=== PATIENT | female | born 1960 | race Caucasian/White ===

== ENCOUNTER → 2017-02-28 | Outpatient (CLI) | payer OTHER ==
--- NOTE | 2017-02-28 15:20 | US ---
EXAMINATION TYPE: US thyroid st tissue head/neck DATE OF EXAM: 02/28/2017 3:11 PM COMPARISON: 09/06/2016 CLINICAL HISTORY: E04.1 THYROID NODULE. Follow up exam GLAND SIZE: Right Lobe: 3.7 x 1.5 x 1.2 cm Overall Parenchyma: homogenous Left Lobe: 3.5 x 1.0 x 1.0 cm Overall Parenchyma: homogeneous Isthmus Thickness: 0.2 cm NODULES RIGHT: # of nodules measured on right: 1 1. 0.5 X 0.3 x 0.5 cm hypoechoic solid nodule at the mid pole with well-defined margins. This nodul e is wider than tall and shows intranodular vascularity. Prior size: 0.4 x 0.3 x 0.3 cm LEFT: # of nodules measured on left: 0 ISTHMUS: # of nodules measured in the isthmus: 0 Bilateral neck scanned, no evidence of lymphadenopathy. IMPRESSION: Stable subcentimeter right solid thyroid nodule.
== END | disposition home or self-care (01) ==
LOC: RADUSWWP 14:56
PROVIDERS: ATTEND Family Medicine
DX: E04.1 Nontoxic single thyroid nodule (principal)
CPT/HCPCS: 76536

== ENCOUNTER → 2017-08-23 | Outpatient (CLI) | payer OTHER ==
--- NOTE | 2017-08-23 08:46 | CT ---
EXAMINATION TYPE: CT chest w con DATE OF EXAM: 08/23/2017 COMPARISON: No prior films are available. The prior report dated 09/10/2002 CT chest is reviewed. HISTORY: Abnormal CXR CT DLP: 161.2 mGycm, Automated exposure control for dose reduction was used. CONTRAST: Performed injected with 100 mL of Omnipaque 300. TECHNIQUE: Axial images were obtained at 5 mm thick sections. Reconstructed images are reviewed on [employer] computer in the coronal plane. FINDINGS: Portion of the thyroid visualized is normal. There are multiple scattered areas of pneumonitis throughout the lung arita. A more focal density of pneumonitis in the right anterior upper lobe measuring 0.8 cm. Series 4 image 16. These multiple are as of pneumonitis are nonspecific. Findings could be compatible with infectious etiologies in the pro per clinical setting. Metastatic disease could be considered. These areas of pneumonitis were describ ed in the previous CT chest of 09/10/2002. However progression cannot be evaluated as the films are n o longer available. The right suprahilar lymph node is enlarged measuring 1.4 cm in diameter. Some mild soft tissue dens ity is adjacent to the left infrahilar region. Enlarged lymphadenopathy within the left hilar region is not evident. The ascending aorta diameter at the level of the main pulmonary artery is 2.6 cm. Th e main pulmonary artery diameter at the bifurcation is 2.3 cm. Some coronary artery calcification is likely present. Limited CT sections are obtained through the upper abdomen. Abdomen is essentially unremarkable. IMPRESSIONS: 1. Multiple bilateral scattered areas of pneumonitis within the lung arita. Correlate with patient's clinical symptoms. Infectious etiology, metastatic disease could be considered. Consider more unusua l forms such as interstitial pneumonitis (UIP, DIP), and Pneumocystis carinii. 2. Enlarged right suprahilar lymph node.
== END | disposition home or self-care (01) ==
LOC: RADCTMAIN 07:14
PROVIDERS: ATTEND Family Medicine
DX: J18.9 Pneumonia, unspecified organism (principal); R59.0 Localized enlarged lymph nodes
CPT/HCPCS: 71260; Q9967

== ENCOUNTER → 2017-08-29 | Outpatient (CLI) | payer OTHER ==
--- NOTE | 2017-08-29 14:37 | US ---
EXAMINATION TYPE: US thyroid st tissue head/neck DATE OF EXAM: 08/29/2017 COMPARISON: 02/28/2017 CLINICAL HISTORY: 57-year-old female R93.8 Abnormal CXR,E04.1 Thyroid Nodule. TECHNIQUE: Multiple sonographic images of the thyroid gland are obtained. FINDINGS: Right Lobe: 4.1 X 1.2 X 1.3 cm Overall Parenchyma: homogenous Left Lobe: 3.7 X 0.7 X 1.1 cm Overall Parenchyma: homogeneous Isthmus Thickness: 0.1 cm NODULES RIGHT: # of nodules measured on right: 1 1. 0.4 X 0.2 x 0.3 cm hypoechoic solid nodule at the mid pole with well-defined margins. This nodu le is wider than tall and shows no intranodular vascularity. Prior size: 0.5 x 0.3 x 0.5 cm. Stability/slight decrease in size suggests a benign etiology. LEFT: # of nodules measured on left: 0 ISTHMUS: # of nodules measured in the isthmus: 0 Bilateral neck scanned, no evidence of lymphadenopathy. IMPRESSION: Tiny 4 mm nodule in the right lobe is stable to slightly decreased in size from 02/28/2017 suggesting a benign etiology.
--- NOTE | 2017-08-30 10:03 | ECHOF ---
Referral Reason:[id number] pre chemo MEASUREMENTS -------- HEIGHT: 154.9 cm WEIGHT: 54.4 kg BP: 133/74 RVIDd: 3.1 cm (< 3.3) IVSd: 0.8 cm (0.6 - 1.1) LVIDd: 3.8 cm (3.9 - 5.3) LVPWd: 0.8 cm (0.6 - 1.1) IVSs: 1.3 cm LVIDs: 2.8 cm LVPWs: 1.4 cm LA Diam: 3.0 cm (2.7 - 3.8) LAESV Index (A-L): 25.63 ml/m Ao Diam: 2.3 cm (2.0 - 3.7) AV Cusp: 1.7 cm (1.5 - 2.6) MV EXCURSION: 17.657 mm (> 18.000) MV EF SLOPE: 146 mm/s (70 - 150) EPSS: 0.4 cm MV E Franco: 0.72 m/s MV DecT: 223 ms MV A Franco: 0.59 m/s MV E/A Ratio: 1.23 RAP: 5.00 mmHg RVSP: 29.15 mmHg FINDINGS -------- Sinus rhythm. This was a technically good study. The left ventricular size is normal. Left ventricular wall thickness is normal. Overall left vent ricular systolic function is normal with, an EF between 60 - 65 %. The right ventricle is normal in size. Normal LA size by volume 22+/-6 ml/m2. The right atrium is normal in size. The aortic valve is trileaflet and appears structurally normal. The mitral valve is normal. Mild tricuspid regurgitation present. Right ventricular systolic pressure is normal at < 35 mmHg. There is no pulmonic regurgitation present. The aortic root size is normal. Normal inferior vena cava with normal inspiratory collapse consistent with estimated right atrial pre ssure of 5 mmHg. The pericardium is normal. CONCLUSIONS -------- 1. Sinus rhythm. 2. This was a technically good study. 3. The left ventricular size is normal. 4. Left ventricular wall thickness is normal. 5. Overall left ventricular systolic function is normal with, an EF between 60 - 65 %. 6. The right ventricle is normal in size. 7. Normal LA size by volume 22+/-6 ml/m2. 8. The right atrium is normal in size. 9. The aortic valve is trileaflet and appears structurally normal. 10. The mitral valve is normal. 11. Mild tricuspid regurgitation present. 12. Right ventricular systolic pressure is normal at < 35 mmHg. 13. There is no pulmonic regurgitation present. 14. The aortic root size is normal. 15. Normal inferior vena cava with normal inspiratory collapse consistent with estimated right atrial pressure of 5 mmHg. 16. The pericardium is normal. BILLING DEPARTMENT SUPERVISOR: Carisa Martínez RDCS
[2017-08-30 13:37] LABS: Alternaria alternata IgE <0.35 kU/L (<0.35); Asperg. fumagatus IgE <0.35 kU/L (<0.35); Asperg. fumagatus IgE Class CLASS 0; Birch(Com.Silvr) IgE Class CLASS 0; Cat Epith & Dander IgE <0.35 kU/L (<0.35); Cat Epith & Dander IgE Class CLASS 0; Clad herbarum IgE <0.35 kU/L (<0.35); Clad herbarum IgE Class CLASS 0; Common Ragweed IgE Class CLASS 0; Dermato. Pteronyssinus Class CLASS 0; Dermato. Pteronyssinus IgE <0.35 kU/L (<0.35); Dermato. farinae IgE <0.35 kU/L (<0.35); Dermato. farinae IgE Class CLASS 0; Maple (Box Elder) IgE <0.35 kU/L (<0.35); Maple (Box Elder) IgE Class CLASS 0; Mountain Cedar IgE <0.35 kU/L (<0.35); Mountain Cedar IgE Class CLASS 0; Mouse Urine IgE Class CLASS 0; Mouse Urine Proteins,IgE <0.35 kU/L (<0.35); Mulberry IgE Class CLASS 0; Nettle IgE <0.35 kU/L (<0.35); Nettle IgE Class CLASS 0; Oak IgE <0.35 kU/L (<0.35); Penicillium notatum IgE Class CLASS 0; Rough Marshelder IgE <0.35 kU/L (<0.35); Rough Marshelder IgE Class CLASS 0; Timothy Grass IgE <0.35 kU/L (<0.35); Timothy Grass IgE Class CLASS 0; White Ash IgE Class CLASS 0
[2017-09-13 16:46] LABS: Alternaria Alternata IgG 2.3 mcg/mL (< 13.6); Cladosporium herbarium IgG 28.8 mcg/mL (< 14.7); Phoma ssp. IgG 4.1 mcg/mL (< 6.6); Saccaharomospora viridis Not detected (Not detected); Saccaharopoly. rectivirgula Not detected (Not detected)
== END | disposition home or self-care (01) ==
LOC: RADUSMAIN 10:59
PROVIDERS: ATTEND Internal Medicine Sleep Medicine
DX: E04.1 Nontoxic single thyroid nodule (principal); B44.9 Aspergillosis, unspecified
CPT/HCPCS: 76536; 82785; 86001; 86003; 86606; 86609; 93306

== ENCOUNTER → 2017-12-05 | Outpatient (CLI) | payer OTHER ==
[2017-12-05 12:10] LABS: Blood Urea Nitrogen 14 mg/dL (7-17)
--- NOTE | 2017-12-05 13:15 | CT ---
EXAMINATION TYPE: CT chest w con DATE OF EXAM: 12/05/2017 COMPARISON: Prior chest CT August 23, 2017 HISTORY: Solitary pulmonary nodule per order. CT DLP: 152.60 mGycm. Automated Exposure Control for Dose Reduction was Utilized. TECHNIQUE: CT scan of the thorax is performed following with IV Contrast, patient injected with 100 mL of Omnipaque 300. FINDINGS: LUNGS: Moderate underlying emphysematous change is redemonstrated. Multifocal areas of irregular grou ndglass opacity with reticulation remaining present though appear improved from prior. Some residual areas are identified bilaterally. No suspicious nodule or mass is present bilaterally. No pleural eff usion or pneumothorax is seen. Tracheobronchial tree is patent. MEDIASTINUM: There are no new greater than 1 cm hilar or mediastinal lymph nodes. There is less promi nent 1.2 x 1.2 cm right suprahilar lymph node axial image 32. No cardiomegaly or pericardial effusion is seen. OTHER: There is mild to moderate calcified plaque in the visualized abdominal aorta. There is multile lucian spurring and disc space narrowing in the thoracic spine. IMPRESSION: Improving multifocal areas of groundglass opacity and reticulation and right suprahilar a denopathy. Some residual areas favor postinflammatory change or scarring on background of mild to mod erate underlying emphysematous change. No suspicious acute pulmonary process.
== END ==
LOC: RADCTMAIN 11:22
PROVIDERS: ATTEND Internal Medicine Sleep Medicine
DX: R91.8 Other nonspecific abnormal finding of lung field (principal)
CPT/HCPCS: 82565; 84520; 71260; 36415; Q9967

== ENCOUNTER → 2018-08-22 | Outpatient (CLI) | payer OTHER ==
--- NOTE | 2018-08-22 15:16 | US ---
EXAMINATION TYPE: US thyroid st tissue head/neck DATE OF EXAM: 08/22/2018 COMPARISON: US CLINICAL HISTORY: E04.1 Nontoxic Single Thryoid Nodule. GLAND SIZE: Right Lobe: 4.5 x 0.9 x 1.3 cm Overall Parenchyma: homogenous Left Lobe: 3.5 x 0.8 x 1.0 cm Overall Parenchyma: homogeneous Isthmus Thickness: 0.2 cm NODULES RIGHT: # of nodules measured on right: 1 1. 0.4 X 0.3 x 0.3 cm isoechoic solid nodule at the mid pole with well-defined margins; . This nod ule is wider than tall and shows no intranodular vascularity. Prior size: 0.4 x 0.2 x 0.3 cm There is a tiny cystic area seen also, measures 0.2 cm. LEFT: # of nodules measured on left: 0 ISTHMUS: # of nodules measured in the isthmus: 0 Bilateral neck scanned, no evidence of lymphadenopathy. Tiny, stable nodule. This measures 0.4 x 0.3 x 0.3 cm at the inferior pole right lobe thyroid which a ppears stable from comparison dated 08/29/2017. IMPRESSION: Stable subcentimeter nodule right lobe thyroid
== END | disposition home or self-care (01) ==
LOC: RADUSWWP 14:23
PROVIDERS: ATTEND Family Medicine
DX: E04.1 Nontoxic single thyroid nodule (principal)
CPT/HCPCS: 76536

== ENCOUNTER → 2019-03-26 | Outpatient (CLI) | payer OTHER ==
--- NOTE | 2019-03-26 10:33 | FL ---
EXAMINATION TYPE: FL barium swallow DATE OF EXAM: 03/26/2019 CLINICAL HISTORY: Difficulty swallowing. TECHNIQUE: A double contrast esophagram is performed utilizing air and barium. A total of 1 minute and 35 seconds of fluoroscopic time was utilized during procedure. 39 fluoroscopic images were saved during the examination. COMPARISON: None FINDINGS: The esophagus shows normal motility and emptying into the stomach. There is impression on t he posterior esophagus by multiple anterior osteophytes in the cervical spine at C3-C4, C4-C5, C5-C6 and to lesser degree at C6-C7 such as on image 14/39. No evidence of hiatal hernia or stricture noted . No significant gastroesophageal reflux was seen during real time performance of this study. IMPRESSION: 1. No hernia, stricture or gastroesophageal junction. 2. Impression on the posterior esophagus by multilevel cervical spine anterior osteophytes from C3 th rough C7. No obstruction.
== END | disposition home or self-care (01) ==
LOC: RADUSWWP 08:52
PROVIDERS: ATTEND Otolaryngology Plastic Surgery within the Head & Neck
DX: R13.10 Dysphagia, unspecified (principal)
CPT/HCPCS: 74220

== ENCOUNTER → 2019-07-04 | Outpatient (CLI) | payer SELFPAY ==
--- NOTE | 2019-07-05 08:54 | US ---
EXAMINATION TYPE: US kidneys/renal and bladder DATE OF EXAM: 07/04/2019 COMPARISON: NONE CLINICAL HISTORY: R31.9 hematuria. macroscopic hematuria EXAM MEASUREMENTS: Right Kidney: 9.4 x 4.8 x 4.3 cm Left Kidney: 8.8 x 4.6 x 4.1 cm Right Kidney: Medial anechoic lesions seen at hilum- 0.9 x 1.0 cm Left Kidney: limited visualization due to overlying bowel gas. No prominent masses or lesions visual ized Bladder: distended, wnl Bilateral Jets seen There is no evidence for hydronephrosis at this point in time. No nephrolithiasis is seen. No solid masses are identified. The urinary bladder is anechoic. Bilateral ureteral jets are seen. IMPRESSION: Small cysts noted medially right kidney measuring up to 1 cm.
== END | disposition home or self-care (01) ==
LOC: RADUSWWP 15:38
PROVIDERS: ATTEND Family Medicine
DX: N28.1 Cyst of kidney, acquired (principal)
CPT/HCPCS: 76770

== ENCOUNTER → 2021-07-03 | Outpatient (CLI) | payer BC, OTHER ==
--- NOTE | 2021-07-03 10:58 | ECHOS ---
STRESS ECHOCARDIOGRAM DATE OF STUDY: 07/03/2021 INDICATIONS: Dyspnea BASELINE HEART RATE: 80 BASELINE BLOOD PRESSURE: 182/88 MAXIMUM HEART RATE: 137 MAXIMUM BLOOD PRESSURE: 182/88 85% MPHR: 136 100% MPHR: 160 METS: 8.7 MAXIMUM STAGE REACHED: 3 TOTAL EXERCISE TIME: 7:15 CLINICAL INFORMATION: STRESS DATA: Heart rate is 80, pressure 106/72 mmHg. Baseline EKG showed sinus mechanism. The patient exercised on the treadmill according to Teodoro protocol for a total of 7 minutes and achieved 8.7 METS. Max heart rate was 137, which is about 86% of maximum predicted heart rate, and maximum blood pressure was 182/88 mmHg. Clinically the patient did not have any symptoms. The EKG did not show any significant ST or T- wave abnormalities concerning for ischemia. ECHOCARDIOGRAM: Echocardiogram images from parasternal long axis view, parasternal short axis view, apical 4-chamber and apical 2-chamber views were obtained as the baseline images, at the peak of the heart rate as well as on recovery. The echocardiogram images showed good augmentation in the left ventricular systolic function without any evidence of wall motion abnormalities concerning for ischemia. CONCLUSION: 1. Excellent exercise tolerance. 2. Normal EKG in response to exercise. 3. Normal echocardiogram in response to exercise. MMODL / IJN: [id number] /
== END | disposition home or self-care (01) ==
LOC: RADNMMAIN 08:56
PROVIDERS: ATTEND Family Medicine
DX: R06.00 Dyspnea, unspecified (principal)
CPT/HCPCS: 93351

== ENCOUNTER → 2022-03-19 | Outpatient (CLI) | payer OTHER | END | disposition home or self-care (01) | LOC: RADUSWWP 08:46 | PROVIDERS: ATTEND Family Medicine | DX: Z53.9 Procedure and treatment not carried out, unspecified reason (principal) ==